=== PATIENT | male | born 1960 | race Two or more races ===

== ENCOUNTER 2020-06-24 09:00 | Outpatient (CLI) | payer OTHER | END 2020-06-24 11:00 | disposition home or self-care (01) | LOC: ASH CLINIC 09:00 | DX: Z23 Encounter for immunization (principal); U07.1 COVID-19 ==

== ENCOUNTER → 2024-08-17 | Emergency (ER) | payer OTHER ==
[~2024-08-17] VITALS: Ht 177.8 cm; Wt 104.3 kg
[~2024-08-17] MED LIST: AMLODIPINE-OLM1 EAC2 PO; BUSPIRONE HCL7.5 MG PO; KETOROLAC TROMETHAMINE 60 MG VIAL IM ONE; KETOROLAC TROMETHAMINE 60 MG VIAL IM STA; ORPHENADRINE CITRATE 30 MG/ML AMPUL IM STA; ORPHENADRINE CITRATE 30 MG/ML AMPUL ONE; TRILIPIX135 MG PO; UROXATRAL10 MG PO
== END | disposition home or self-care (01) ==
LOC: ER 13:04
DX: M62.830 Muscle spasm of back (principal); M54.50 Low back pain, unspecified; I10 Essential (primary) hypertension